=== PATIENT | male | born 1990 | race Caucasian/White ===

== ENCOUNTER → 2019-08-28 10:40 | Outpatient (CLI) | payer BC ==
--- NOTE | ~2019-08-28 | ST ---
PATIENT:BETINA PRITCHARD MEDICAL RECORD: [id number] SEX: M LOCATION:[facility] ORDER #: ADMISSION DATE: 08/28/19 AGE OF PATIENT: 29 REFERRING PHYSICIAN: INTERPRETING PHYSICIAN: HARISH MANNING MD DATE OF SERVICE: 08/28/2019 PROCEDURE: Nuclear stress test. INDICATION: Angina, family history of coronary artery disease. TECHNIQUE: He was exercised on standard Jon protocol for 10 minutes achieving greater than 85% max target heart rate response with 33 mCi of sestamibi injected at peak stress, 11 mCi were used previously for rest images. FINDINGS: Gated SPECT reveals preserved ejection fraction at 67% with good wall motion and thickening and brightening throughout all segments. SPECT imaging Cardiolite was used as myocardial fusion agent. There is homogeneous uptake throughout all segments at rest and stress with no evidence of inducible ischemia or previous infarction. OVERALL IMPRESSION: 1. This is a normal nuclear stress test with no evidence of inducible ischemia or previous infarction. 2. Gated SPECT reveals a preserved ejection fraction at 67%. In this patient with ongoing symptomatology, the current scan does not suggest the presence of hemodynamically significant coronary artery disease. Evaluate noncardiac etiology of chest pain. TRANSINT:[id number] Voice Confirmation ID: [id number] DOCUMENT ID: [id number] HARISH MANNING MD CC: LOW CRUZ MD [id number] DICTATION DATE: 08/28/19 1658 PRODUCTION ASSEMBLY OPERATOR: 08/29/19 0731 DEP CLI 08/28/19 [facility] [address] [place] [address]
== END | disposition home or self-care (01) ==
LOC: D.HCCARDIO 10:40
PROVIDERS: ATTEND Internal Medicine Interventional Cardiology
DX: R07.9 Chest pain, unspecified (principal)

== ENCOUNTER 2019-11-07 17:07 | Emergency (ER) | payer OTHER ==
[~2019-11-07] VITALS: Ht 195.6 cm; Wt 86.4 kg
[2019-11-07 17:17] VITALS: Ht 195.6 cm; Wt 86.4 kg
[2019-11-07] MEDS ORDERED: TOPROL XL25 MG PO (17:19)
[2019-11-07] MEDS ORDERED: VOLTAREN75 MG PO (20:19)
[2019-11-07] MEDS ORDERED: BACLOFEN20 M1 PO (20:19)
[2019-11-07 20:44] VITALS: BP 114/67
== END 2019-11-07 20:44 | disposition home or self-care (01) ==
LOC: D.ER 17:07
DX: R52 Pain, unspecified (principal); V89.2XXA Person injured in unspecified motor-vehicle accident, traffic, initial encounter; M62.838 Other muscle spasm; M62.831 Muscle spasm of calf

== ENCOUNTER 2020-03-05 13:46 | Emergency (ER) | payer OTHER ==
[~2020-03-05] VITALS: Ht 195.6 cm; Wt 84.1 kg
[~2020-03-05 13:46] MED LIST: BACLOFEN20 M1 PO; TOPROL XL25 MG PO; VOLTAREN75 MG PO
[2020-03-05 13:50] VITALS: Ht 195.6 cm; Wt 84.1 kg
[2020-03-05 14:54] LABS: BILIRUBIN NEGATIVE (NEGATIVE); GLUCOSE NEGATIVE (NEGATIVE); KETONE NEGATIVE (NEGATIVE); NITRITE NEGATIVE (NEGATIVE); UROBILINOGEN NORMAL (NORMAL)
[2020-03-05 14:55] LABS: BASOPHILS 0.3 % (0-2); EOSINOPHILS 0.9 % (0-7); HEMATOCRIT 47.4 % (42.0-54.0); HEMOGLOBIN 15.9 g/dL (13.5-17.5); IMMATURE GRANULOCYTES 0.2 % (0-5); LYMPHOCYTES 16.4 % (15-50); MCH 31.5 pg (26.0-34.0); MCHC 33.5 g/dL (31.0-37.0); MCV 93.9 fL (80.0-100.0); MEAN PLATELET VOLUME 10.5 fL (7.4-10.4); MONOCYTES 6.2 % (2-11); PLATELET COUNT 259 10x3/uL (130-400); RBC 5.05 10x6/uL (4.20-6.10); RDW 12.4 % (11.5-14.5); WBC 10.3 10x3/uL (4.8-10.8)
[2020-03-05 15:09] LABS: APTT 29.2 SECONDS (22.8-39.4); INR 0.97 (0.85-1.17); PROTIME 12.8 SECONDS (11.6-15.0)
[2020-03-05 15:13] LABS: UDS - AMPHET NEGATIVE QUAL (NEGATIVE); UDS - BARB NEGATIVE QUAL (NEGATIVE); UDS - BENZO NEGATIVE QUAL (NEGATIVE); UDS - COCAINE NEGATIVE QUAL (NEGATIVE); UDS - OPIATE NEGATIVE QUAL (NEGATIVE); UDS - PCP NEGATIVE QUAL (NEGATIVE); UDS - THC NEGATIVE QUAL (NEGATIVE)
[2020-03-05 16:39] LABS: CALC OSMOLALITY 279 mosm/kg (275-300); CALCIUM 9.3 mg/dL (8.5-10.1); CARBON DIOXIDE 27.3 mmol/L (21.0-32.0); CHLORIDE - SERUM 102 mmol/L (98-107); CREATININE - SERUM 1.2 mg/dL (0.6-1.3); GLUCOSE 97 mg/dL (74-106); POTASSIUM - SERUM 4.1 mmol/L (3.5-5.1); SODIUM 140 mmol/L (136-145); UREA NITROGEN 15 mg/dL (7-18); eGFR NON AFRICAN AMERICAN 75 mL/min (90-120)
[2020-03-05 16:55] LABS: ALBUMIN 4.8 g/dL (3.4-5.0); ALKALINE PHOSPHATASE 82 U/L (30-120); ALT (SGPT) 22 U/L (10-68); BILIRUBIN - TOTAL 0.46 mg/dL (0.2-1.3); CKMB 0.6 U/L (0.0-3.6); CREATINE KINASE 60 UL (21-232); MAGNESIUM - SERUM 2.1 mg/dL (1.8-2.4); THYROID STIMULATING HORMONE 1.05 uIU/mL (0.36-3.74)
[2020-03-05 16:56] LABS: TROPONIN-I < 0.017 ng/mL (0.000-0.060)
[2020-03-05 19:14] VITALS: BP 121/76
== END 2020-03-05 19:14 | disposition home or self-care (01) ==
LOC: D.ER 13:46
PROVIDERS: Family Medicine
DX: R55 Syncope and collapse (principal)